=== PATIENT | male | born 1960 | race Caucasian/White ===

== ENCOUNTER 2018-03-07 18:56 | Emergency (ER) | payer MEDICAID, OTHER ==
[2018-03-07] MEDS: DIPHTH/TET/ACEL PERTUSS (ADULT) 0.5 ML VIAL IM* (22:37)
[2018-03-07] MEDS: LIDOCAINE 1% (MDV) 10 ML INJ INJ (23:23)
== END 2018-03-08 00:49 | disposition home or self-care (01) ==
LOC: FTE 03-08 00:49
DX: S61.412A Laceration without foreign body of left hand, initial encounter (principal); W25.XXXA Contact with sharp glass, initial encounter; Y92.9 Unspecified place or not applicable; Z23 Encounter for immunization
CPT/HCPCS: 12002; 73130-LT; 90471; 90715; 99283-25